=== PATIENT | female | born 1955 | race Caucasian/White ===

== ENCOUNTER 2018-08-21 21:13 | Emergency (ER) | payer MEDICARE, MEDICAID ==
[~2018-08-21] VITALS: Ht 160 cm; Wt 80.5 kg
[~2018-08-21 21:13] MED LIST: ASPI-1213 PO; INSLAN SQ; METF1000 PO
[2018-08-21] MEDS ORDERED: AMLO-511 PO (21:32)
[2018-08-21] MEDS ORDERED: LISI-661 PO (21:32)
[2018-08-21 21:34] LABS: GLUCOSE,POINT OF CARE 207 MG/DL (70-110)
[2018-08-21] MEDS ORDERED: KETOROLAC TROMETHAMINE 30 MG/ML VIAL IM ONE (22:00)
[2018-08-21 23:54] VITALS: BP 168/85
== END 2018-08-21 23:56 | disposition home or self-care (01) ==
LOC: EMS 21:14
DX: S93.402A Sprain of unspecified ligament of left ankle, initial encounter (principal); I10 Essential (primary) hypertension; E11.9 Type 2 diabetes mellitus without complications; E78.00 Pure hypercholesterolemia, unspecified; M25.511 Pain in right shoulder; Z79.4 Long term (current) use of insulin; Z79.899 Other long term (current) drug therapy; W18.09XA Striking against other object with subsequent fall, initial encounter; Y93.89 Activity, other specified; Y92.89 Other specified places as the place of occurrence of the external cause; Y99.8 Other external cause status
CPT/HCPCS: 29515; 73610; 73630; 82962; 96372; 99283; J1885

== ENCOUNTER 2019-03-18 12:37 | Emergency (ER) | payer MEDICARE, MEDICAID ==
[~2019-03-18] VITALS: Ht 162.6 cm; Wt 79.5 kg
[~2019-03-18 12:37] MED LIST changes: +AMLO5TAB9 PO; -ASPI-1213 PO; +LISI-661 PO
[2019-03-18 12:55] LABS: GLUCOSE,POINT OF CARE 336 MG/DL (70-110)
[2019-03-18 15:17] VITALS: BP 154/88
== END 2019-03-18 15:27 | disposition home or self-care (01) ==
LOC: EMS 12:38
DX: M79.672 Pain in left foot (principal); I10 Essential (primary) hypertension; E11.9 Type 2 diabetes mellitus without complications; E78.00 Pure hypercholesterolemia, unspecified; Z79.899 Other long term (current) drug therapy; Z79.4 Long term (current) use of insulin